=== PATIENT | female | born 1950 | race Caucasian/White ===

== ENCOUNTER 2019-03-22 14:03 | Observation (INO) ==
[2019-03-22] MEDS ORDERED: Naloxone 0.4 MG/ML INJ IVP PRN (17:36)
[2019-03-22] MEDS ORDERED: Ondansetron 4 MG/2 ML VIAL IVP PRN (17:36)
[2019-03-22] MEDS ORDERED: Gadolinium Contrast Agent (WT Based) IV PRN (17:40)
[2019-03-22] MEDS ORDERED: Ipratropium/Albuterol Neb 3 ML IH PRN (17:41)
[2019-03-22] MEDS ORDERED: D5% in Water 1,000 ML IVC PRN (17:41)
[2019-03-22] MEDS ORDERED: Dextrose Gel 15 GM/37.5 ML TUBE PO PRN ×2 (17:41)
[2019-03-22] MEDS ORDERED: *HR* Dextrose 50 % in Water (Syg) 50 ML SYRINGE IVP PRN (17:41)
[2019-03-22] MEDS ORDERED: traMADol 50 MG TABLET PO PRN (17:42)
[2019-03-22] MEDS ORDERED: *HR* HYDROcodone/Acet 5/325 mg TABLET PO PRN (17:42)
--- NOTE | 2019-03-22 17:50 | Internal Med History&Physical ---
Date of Encounter: 03/22/19 Time of Encounter: 17:15 Internal Medicine - H&P: HPI Chief complaint: abdominal pain, nausea Admitted From: Hospital to Hospital Transfer History of present illness: Ms. Hopson is a 69 year old female with history of diabetes, hyperlipidemia, COPD, HTN, who was transferred from OSH due to abdominal pain and abnormal CT abdo/pelvis. Pt states that she has had dull, epigastric pain for the last year or so. It was progressively worsening over the last 2 weeks hence she went to the OSH ED for further evaluation. Non-radiating, no aggravating/relieving factors, and not associated with any change in bowel habits or urinary symptoms including dysuria, hematuria, or urinary frequency. Denies any alcohol use. She endorses unintentional 20 pound weight loss over the last 3 months as well as loss of appetite. Denies any chest pain, shortness of breath, cough, sputum production, fever/chills, night sweats, joint pain, or rash. At the outside hospital ED, she was afebrile and hemodynamically stable. Labwork showed leukocytosis, creatinine of 1.38 (no baseline available), unremarkable LFT except for albumin of 3 and ALP of 146, and lipase of 1212. PT/INR was normal. Urinalysis was negative for leukocyte esterase or nitrite. CT Abdo pelvis showed several ill-defined areas of low attenuation in the liver as well as a small mass in the pancreatic body. No report of peripancreatic stranding or edema. She was transferred to [facility] for further management with GI consultation. Past Med Surg Social Fam HX - Past Medical History Attestation: Yes The following information was validated with the patient. Medical history: COPD, diabetes, hypertension Psychiatric history: anxiety, depression - Past Surgical History Additional surgical history: toe ampu right foot - Social History Smoking Status: Current every day smoker Packs per day: 1 Alcohol use: none Drug use: none - Family History Father Living Status: Hx Family Cardiac Disorders: Yes Sister Living Status: Still Living Hx Family Endocrine Disorder: Yes (DM) Internal Medicine - H&P: Meds Albuterol Neb [Proventil Neb] 03/22/19 [History] Insulin Degludec [Tresiba Flextouch U-100] 80 unit SQ HS 03/22/19 [History] Allergy/AdvReac Type Severity Reaction Status Date / Time clindamycin Allergy Hives Verified 03/22/19 17:38 Penicillins Allergy Hives Verified 03/22/19 17:36 promethazine [From Phenergan] Allergy Rash Verified 03/22/19 17:38 ciprofloxacin [From Cipro] AdvReac Hypertensio Verified 03/22/19 17:38 n codeine AdvReac Nausea Verified 03/22/19 17:36 doxycycline AdvReac Dizziness Verified 03/22/19 17:36 levofloxacin [From Levaquin] AdvReac Heartburn Verified 03/22/19 17:38 Metaproterenol [From Alupent] AdvReac Shakiness Verified 03/22/19 17:38 moxifloxacin [From Avelox] AdvReac Hypertensio Verified 03/22/19 17:38 n prednisone AdvReac Nausea Verified 03/22/19 17:36 Sulfa (Sulfonamide AdvReac Nausea Verified 03/22/19 17:36 Antibiotics) All Systems PM: A 10-system review of systems was performed and is negative for pertinent findings except as documented above in the HPI. - Constitutional Vitals: Temp Pulse Resp BP Pulse Ox 98.0 F 61 16 105/72 94 03/22/19 16:47 03/22/19 16:47 03/22/19 16:47 03/22/19 16:47 03/22/19 16:47 Exam: General: Alert and oriented, not in acute distress. HEENT:EOMI, pupils equal, round and reactive. Cardiovascular:Normal S1 & S2, No JVD. Pulse regular. Lungs: clear to auscultation, no wheezes/rales Abdomen:Soft, epigastric tenderness on deep palpation only. No rebound/guarding/rigidity. No obvious organomegaly palpated Extremities:No deformity or swelling Neurological:Normal cognition and motor skills. Non-focal Skin:Normal color, no rash, no lesions. Pulses:Carotid and radial pulses normal +2. Rest of the physical exam is non contributory - Assessment and Plan (1) Pancreatic mass Current Visit: Yes Status: Acute Assessment and plan: presented with acute on chronic abdominal pain and nausea. Found to have small mass in pancreatic body measuring 14mm lipase also elevated at 1212 but her abdominal pain is not characteristic of acute pancreatitis nor imaging study showed peripancreatic stranding or edema. Pt also doesn't have any risk factors for pancreatitis will repeat lipase tomorrow morning, clear liquid diet for now MRI abdomen will consult GI tomorrow morning (2) Liver mass Current Visit: Yes Status: Acute Assessment and plan: possibly represents focal fatty infiltration but will further evaluate with MRI as above GI consult tomorrow morning (3) Diabetes Current Visit: Yes Status: Chronic Assessment and plan: low dose sliding scale coverage Qualifiers: Diabetes mellitus type: type 2 Diabetes mellitus senior care insulin use: with terminal press operator use Diabetes mellitus complication status: with other specified complication Qualified Code(s): E11.69 - Type 2 diabetes mellitus with other specified complication; Z79.4 - jail (current) use of insulin (4) COPD (chronic obstructive pulmonary disease) Current Visit: Yes Status: Chronic Assessment and plan: not in exacerbation, PRN duoneb resume home inhalers once reconciled Qualifiers: COPD type: unspecified COPD Qualified Code(s): J44.9 - Chronic obstructive pulmonary disease, unspecified (5) Tobacco abuse Current Visit: Yes Status: Chronic Assessment and plan: smoking cessation advised NRT (6) Hypertension Current Visit: Yes Status: Chronic Assessment and plan: resume home meds once reconciled Qualifiers: Hypertension type: unspecified Qualified Code(s): I10 - Essential (primary) hypertension (7) DVT prophylaxis Current Visit: Yes Status: Acute Assessment and plan: SQ heparin - Time Spent With Patient Total time spent is greater than 50% in coordination of care (as documented) at patient's floor/unit and/or counseling patient: 25 - 35 minutes
[2019-03-22] MEDS: Nicotine 21 MG PATCH.TD24 TD SCH (18:43)
[2019-03-22] MEDS: Ringers Solution, Lactated 1,000 ML IVC SCH (18:43)
[2019-03-22] MEDS ORDERED: Insulin LISPRO 300 UNITS/3 ML VIAL SQ SCH (21:00)
[2019-03-22] MEDS: tiZANidine 4 MG TABLET PO SCH (22:43)
[2019-03-22] MEDS ORDERED: Acetaminophen IV 500 MG/50 ML INFUS..BTL IVPB ONE (22:58)
[2019-03-23] MEDS: Budesonide/Formoterol 160/4.5 1 PUFF INH IH SCH ×2 (00:01→07:17)
[2019-03-23] MEDS: Famotidine 20 MG TABLET PO SCH ×2 (00:36→08:51)
[2019-03-23] MEDS: Ringers Solution, Lactated 1,000 ML IVC SCH (04:47)
[2019-03-23 06:08] LABS: Basophils # 0.1 K/mcL (0.0-0.2); Basophils % 0.5 %; Eosinophils # 0.2 K/mcL (0.0-0.6); Eosinophils % 1.8 %; Hematocrit 39.4 % (35.3-44.9); Hemoglobin 13.2 g/dL (11.5-15.4); Immature Granulocytes % 0.4 % (0-4); Lymphocytes # 5.5 K/mcL (0.6-4.6); Lymphocytes % 44.3 %; Mean Corpuscular HGB Conc 33.5 g/dL (31.6-35.5); Mean Corpuscular Volume 86.6 fL (83.0-100.0); Mean Platelet Volume 9.4 fL (9.4-12.4); Monocytes # 0.9 K/mcL (0.0-1.3); Monocytes % 7.1 %; Neutrophils # 5.7 K/mcL (1.6-8.9); Platelet Count 314 K/mcL (140-400); Red Blood Count 4.55 M/mcL (3.82-4.97); Red Cell Distribution Width 13.7 % (11.5-14.5); Segmented Neutrophils % 45.9 %; White Blood Count 12.5 K/mcL (4.3-11.1)
[2019-03-23 06:26] LABS: Alanine Aminotransferase 17 Units/L (7-52); Albumin 3.3 g/dL (3.5-5.7); Albumin/Globulin Ratio 1.1 (1.1-2.2); Alkaline Phosphatase 105 Units/L (34-104); Aspartate Amino Transferase 11 Units/L (13-39); BUN/Creatinine Ratio 13 (6-26); Bilirubin,Total 0.3 mg/dL (0.3-1.0); Blood Urea Nitrogen 13 mg/dL (8-23); Calcium 9.2 mg/dL (8.6-10.3); Carbon Dioxide 28 mEq/L (23-29); Chloride 101 mEq/L (98-107); Globulin 2.9 g/dL (2.4-3.5); Glucose 95 mg/dL (70-105); Lipase 88 Units/L (11-82); Magnesium 1.6 mg/dL (1.6-2.6); Osmolality,Calculated 288 (280-300); Potassium 3.8 mEq/L (3.5-5.1); Sodium 139 mEq/L (136-145); Total Protein 6.2 g/dL (6.4-8.9); eGFR For African Americans > 60 (> 60); eGFR For Non-African Americans 57 (> 60)
[2019-03-23 06:27] LABS: Chol/HDL Ratio 4.7 (0-4.9)
[2019-03-23] MEDS: tiZANidine 4 MG TABLET PO SCH (08:51)
[2019-03-23] MEDS: Nicotine 21 MG PATCH.TD24 TD SCH (08:51)
[2019-03-23] MEDS: Insulin LISPRO 300 UNITS/3 ML VIAL SQ SCH ×2 (08:52→12:24)
[2019-03-23] MEDS ORDERED: amLODIPine 5 MG TABLET PO SCH (09:00)
[2019-03-23 11:43] VITALS: BP 128/76
--- NOTE | 2019-03-23 12:04 | Discharge Summary ---
- NOTES TO OUTPATIENT PROVIDER Notes to Outpatient Provider: Follow up with GI as outpatient for EUS Date of Encounter: 03/23/19 Time of Encounter: 09:45 - Discharge Diagnosis (1) Pancreatic mass Priority: Primary Status: Acute (2) Liver mass Priority: Secondary Status: Acute (3) Diabetes Priority: Secondary Status: Chronic Qualifiers: Diabetes mellitus type: type 2 Diabetes mellitus prison insulin use: with prison use Diabetes mellitus complication status: with other specified complication Qualified Code(s): E11.69 - Type 2 diabetes mellitus with other specified complication; Z79.4 - [facility] (current) use of insulin (4) COPD (chronic obstructive pulmonary disease) Priority: Secondary Status: Chronic Qualifiers: COPD type: unspecified COPD Qualified Code(s): J44.9 - Chronic obstructive pulmonary disease, unspecified (5) Tobacco abuse Priority: Secondary Status: Chronic (6) Hypertension Priority: Secondary Status: Chronic Qualifiers: Hypertension type: unspecified Qualified Code(s): I10 - Essential (primary) hypertension (7) DVT prophylaxis Priority: Secondary Status: Acute (8) HEMA (acute kidney injury) Priority: Secondary Status: Acute Hospital course: Ms. Hopson is a 69 year old female history of diabetes, hyperlipidemia, COPD, HTN, who was transferred from OSH due to acute on chronic abdominal pain and abnormal CT abdo/pelvis. Pt states that she has had dull, epigastric pain for the last year which was progressively worsening over the last 2 weeks prior to the presentation. CT at the outside facility showed several ill-defined areas of low attenuation in the liver as well as a small mass in the pancreatic body. No report of peripancreatic stranding or edema. She subsequently underwent MRI abdomen which demonstrated focal hepatic steatosis and pancreatic findings that could represent chronic pancreatitis, IPMN, pseudocyst, or serous cystadenoma. Discussed with GI over the phone and she will be scheduled for outpatient EUS next week. Discharge discussed with: patient, nurse, organizational consultant - Time Spent with Patient Total time spent providing and/or coordinating discharge services: 26 mins - Discharge Medications Prescriptions: Continued Insulin Degludec [Tresiba Flextouch U-100] 80 unit SQ HS Albuterol Neb [Proventil Neb] BID Tizanidine HCl [Zanaflex] 4 mg PO QID raNITIdine HCl [Ranitidine HCl] 300 mg PO DAILY Montelukast [Singulair] 10 mg PO DAILY Dicyclomine Hcl [Bentyl] 20 mg PO TID Budesonide/Formoterol 160/4.5 [Symbicort 160/4.5] 2 puff IH BIDR Atenolol 100 mg PO BID Buspirone HCl [Buspar] 10 mg PO QID amLODIPine [Norvasc] 5 mg PO DAILY Esomeprazole Magnesium [Nexium] 40 mg PO BID Amitriptyline HCl 150 mg PO HS Home Medications: Albuterol Neb [Proventil Neb] BID 03/22/19 [History] Amitriptyline HCl 150 mg PO HS 03/22/19 [History] Atenolol 100 mg PO BID 03/22/19 [History] Budesonide/Formoterol 160/4.5 [Symbicort 160/4.5] 2 puff IH BIDR 03/22/19 [History] Buspirone HCl [Buspar] 10 mg PO QID 03/22/19 [History] Dicyclomine Hcl [Bentyl] 20 mg PO TID 03/22/19 [History] Esomeprazole Magnesium [Nexium] 40 mg PO BID 03/22/19 [History] Insulin Degludec [Tresiba Flextouch U-100] 80 unit SQ HS 03/22/19 [History] Montelukast [Singulair] 10 mg PO DAILY 03/22/19 [History] Tizanidine HCl [Zanaflex] 4 mg PO QID 03/22/19 [History] amLODIPine [Norvasc] 5 mg PO DAILY 03/22/19 [History] raNITIdine HCl [Ranitidine HCl] 300 mg PO DAILY 03/22/19 [History] Allergies/Adverse Reactions: Allergy/AdvReac Type Severity Reaction Status Date / Time clindamycin Allergy Hives Verified 03/22/19 17:38 Penicillins Allergy Hives Verified 03/22/19 17:36 promethazine [From Phenergan] Allergy Rash Verified 03/22/19 17:38 ciprofloxacin [From Cipro] AdvReac Hypertensio Verified 03/22/19 17:38 n codeine AdvReac Nausea Verified 03/22/19 17:36 doxycycline AdvReac Dizziness Verified 03/22/19 17:36 levofloxacin [From Levaquin] AdvReac Heartburn Verified 03/22/19 17:38 Metaproterenol [From Alupent] AdvReac Shakiness Verified 03/22/19 17:38 moxifloxacin [From Avelox] AdvReac Hypertensio Verified 03/22/19 17:38 n prednisone AdvReac Nausea Verified 03/22/19 17:36 Sulfa (Sulfonamide AdvReac Nausea Verified 03/22/19 17:36 Antibiotics) Date of admission: 03/22/19 17:16 Primary care physician: Hermelinda Blackburn DO - Constitutional Vitals: Temp Pulse Resp BP Pulse Ox 98.8 F 57 17 128/76 96 03/23/19 11:39 03/23/19 11:39 03/23/19 11:39 03/23/19 11:39 03/23/19 11:39 Exam: General: Alert and oriented, not in acute distress. Cardiovascular:Normal S1 & S2, No JVD. Pulse regular. Lungs: clear to auscultation, no wheezes/rales Abdomen:Soft, epigastric tenderness on deep palpation only. No rebound/guarding/rigidity. No obvious organomegaly palpated Extremities:No deformity or swelling Neurological:Normal cognition and motor skills. Non-focal - Patient Status Disposition: Home, Self-Care Condition: Fair Functional capacity at discharge: independent ambulation Overall status at discharge: patient is progressing back to baseline - Discharge Instructions Instructions: Chronic Obstructive Pulmonary Disease (DC), Diabetes Mellitus Type 2 in Adults (DC), Chronic Hypertension (DC) Follow Up With: [facility] [Provider Group] (An appointment has been requested. The office will contact you at home to schedule an appointment. Thank you. ) Hermelinda Blackburn DO [Primary Care Provider] - 04/05/19 3:00 pm Maddy Perez MD [Partnered Physician] - - Diet and Activity Activity: resume usual activities as tolerated Diet: advance to your usual diet
--- NOTE | 2019-03-23 14:18 | Electrocardiograph Report ---
[place] [id number] Test Date: 2019-03-22 Pat Name: Bernie Hopson Department: 113 Room: 3B34 Gender: F [place] [employer]: : [id number] Requested By: Man Bauman Order Number: [id number] Reading MD: Zeus Zelaya Measurements Intervals [place] Rate: 65 P: 69 CO: 176 QRS: 4 QRSD: 111 T: 62 QT: 396 QTc: 407 Interpretive Statements SINUS RHYTHM MODERATE INTRAVENTRICULAR CONDUCTION DELAY [110+ ms QRS DURATION] Electronically Signed On 03-23-2019 14:16:55 EDT by Zeus Zelaya
== END 2019-03-23 13:00 | disposition home or self-care (01) ==
LOC: 3BNU → SUATTDRO 17:16
PROVIDERS: ADMIT Student in an Organized Health Care Education/Training Program; ATTEND Internal Medicine

== ENCOUNTER 2019-07-01 15:52 | Inpatient (IN) ==
[2019-07-01] MEDS: *HR* FentaNYL (PF) 100 MCG/2 ML VIAL IVP ONE ×2 (16:30→17:47)
[2019-07-01 16:38] LABS: Basophils % 0.2 %; Eosinophils # 0.1 K/mcL (0.0-0.6); Eosinophils % 0.7 %; Hematocrit 41.5 % (35.3-44.9); Hemoglobin 15.2 g/dL (11.5-15.4); Immature Granulocytes % 1.6 % (0-4); Lymphocytes # 5.1 K/mcL (0.6-4.6); Lymphocytes % 27.8 %; Mean Corpuscular HGB Conc 36.6 g/dL (31.6-35.5); Mean Corpuscular Hemoglobin 30.6 pg (28.0-33.3); Mean Corpuscular Volume 83.7 fL (83.0-100.0); Monocytes # 1.4 K/mcL (0.0-1.3); Monocytes % 7.8 %; Neutrophils # 11.4 K/mcL (1.6-8.9); Platelet Count 325 K/mcL (140-400); Red Blood Count 4.96 M/mcL (3.82-4.97); Red Cell Distribution Width 12.4 % (11.5-14.5); Segmented Neutrophils % 61.9 %; White Blood Count 18.4 K/mcL (4.3-11.1)
[2019-07-01 16:43] LABS: INR 1.1
[2019-07-01 16:58] LABS: Calcium 8.7 mg/dL (8.6-10.3); Potassium 3.9 mEq/L (3.5-5.1)
[2019-07-01] MEDS ORDERED: *HR* FentaNYL (PF) 100 MCG/2 ML VIAL IVP ONE (17:37)
[2019-07-01] MEDS ORDERED: Isovue-370 500 ML BOTTLE IVP ONE (18:43)
[2019-07-01] MEDS ORDERED: *HR* Heparin 5,000 UNIT/ML VIAL IVP PRN ×2 (18:47)
[2019-07-01] MEDS ORDERED: *HR* Heparin 5,000 UNIT/ML VIAL IVP ONE (18:47)
[2019-07-01] MEDS ORDERED: Heparin 25,000 UNIT/250 ML D5W 25,000 UNIT/250 ML IV.SOLN IVC SCH (19:00)
[2019-07-01] MEDS ORDERED: *HR* HYDROmorphone (PF) 1 MG/ML SYRINGE IVP ONE (19:06)
[2019-07-01 19:29] LABS: Prothrombin Time 11.5 Seconds (9.4-12.1)
[2019-07-01] MEDS ORDERED: Ondansetron 4 MG/2 ML VIAL IVP ONE (19:52)
[2019-07-01] MEDS ORDERED: *HR* HYDROmorphone (PF) 1 MG/ML SYRINGE IVP PRN (19:52)
[2019-07-01] MEDS ORDERED: *HR* Meperidine 25 MG/ML SYRINGE IVP PRN (19:52)
[2019-07-01] MEDS ORDERED: Lidocaine -MPF 2% 2 ML VIAL ONE (20:07)
[2019-07-01] MEDS ORDERED: Lidocaine HCL 4 ML Topical Solution (Laryng-O-Jet Kit Sterile Pak) TP ONE (20:07)
[2019-07-01] MEDS ORDERED: *HR* Rocuronium Bromide 50 MG/5 ML VIAL ONE (20:07)
[2019-07-01] MEDS ORDERED: *HR* Propofol 200 MG/20 ML VIAL IVP ONE (20:07)
[2019-07-01] MEDS ORDERED: *HR* FentaNYL (PF) 100 MCG/2 ML VIAL ONE (20:07)
[2019-07-01] MEDS ORDERED: Ondansetron 4 MG/2 ML VIAL ONE (20:08)
[2019-07-01] MEDS ORDERED: Dexamethasone 4 MG/ML VIAL ONE (20:08)
[2019-07-01] MEDS ORDERED: Acetaminophen IV 1,000 MG/100 ML INFUS..BTL ONE (20:20)
[2019-07-01] MEDS ORDERED: Heparin 1,000 UNITS/500 mL 500 ML ONE (20:26)
[2019-07-01] MEDS ORDERED: Lidocaine 1% 20 ML MDV ONE (20:27)
[2019-07-01] MEDS ORDERED: Clindamycin 900 MG/50 ML 0 MG/0 ML IV.SOLN IVPB ONE (20:29)
[2019-07-01] MEDS ORDERED: Albuterol 2.5 MG/3 ML NEBULIZER IH ONE (20:42)
[2019-07-01] MEDS ORDERED: *HR* Succinylcholine 200 MG/10 ML VIAL IVP ONE (20:46)
[2019-07-01] MEDS ORDERED: *HR* HYDROMORPHONE 2 MG/ML VIAL ONE (21:29)
[2019-07-01] MEDS ORDERED: *HR* PHENYLEPHRINE 1,000 MCG/10 ML SYRINGE IVP ONE (22:06)
[2019-07-01] MEDS ORDERED: Naloxone 0.4 MG/ML INJ IVP PRN ×2 (23:07→23:12)
[2019-07-01] MEDS ORDERED: Dextrose Gel 15 GM/37.5 ML TUBE PO PRN ×2 (23:11)
[2019-07-01] MEDS ORDERED: *HR* Dextrose 50 % in Water (Syg) 50 ML SYRINGE IVP PRN (23:11)
[2019-07-01] MEDS ORDERED: D5% in Water 1,000 ML IVC PRN (23:11)
[2019-07-01] MEDS ORDERED: Acetaminophen 325 MG TABLET PO PRN (23:12)
[2019-07-01] MEDS ORDERED: *HR* OxyCODONE Immed Rel 5 MG TABLET PO PRN (23:12)
[2019-07-01] MEDS ORDERED: Ringers Solution, Lactated 1,000 ML IVC SCH (23:15)
[2019-07-01] MEDS ORDERED: Insulin DETEMIR 100 UNIT/ML X5UNITS SQ ONE (23:48)
[2019-07-02] MEDS ORDERED: Albuterol 2.5 MG/3 ML NEBULIZER IH PRN (00:11)
[2019-07-02] MEDS: *HR* HYDROcodone/Acet 5/325 mg TABLET PO PRN ×2 (00:20→07:48)
[2019-07-02 05:04] LABS: Basophils # 0.1 K/mcL (0.0-0.2); Basophils % 0.3 %; Hematocrit 40.6 % (35.3-44.9); Hemoglobin 14.4 g/dL (11.5-15.4); Immature Granulocytes % 1.1 % (0-4); Lymphocytes # 1.6 K/mcL (0.6-4.6); Lymphocytes % 8.4 %; Mean Corpuscular HGB Conc 35.5 g/dL (31.6-35.5); Mean Corpuscular Hemoglobin 30.3 pg (28.0-33.3); Mean Corpuscular Volume 85.5 fL (83.0-100.0); Mean Platelet Volume 9.7 fL (9.4-12.4); Monocytes # 0.3 K/mcL (0.0-1.3); Monocytes % 1.7 %; Neutrophils # 16.5 K/mcL (1.6-8.9); Platelet Count 273 K/mcL (140-400); Red Blood Count 4.75 M/mcL (3.82-4.97); Red Cell Distribution Width 12.4 % (11.5-14.5); Segmented Neutrophils % 88.5 %; White Blood Count 18.6 K/mcL (4.3-11.1)
[2019-07-02 05:06] LABS: Prothrombin Time 11.4 Seconds (9.4-12.1)
[2019-07-02 05:09] LABS: Heparin anti-factor XA UFH 1.1 IU/mL (0.30-0.70)
[2019-07-02 05:28] LABS: BUN/Creatinine Ratio 21 (6-26); Blood Urea Nitrogen 20 mg/dL (8-23); Calcium 8.4 mg/dL (8.6-10.3); Carbon Dioxide 23 mEq/L (23-29); Chloride 101 mEq/L (98-107); Glucose 276 mg/dL (70-105); Osmolality,Calculated 286 (280-300); Potassium 4.9 mEq/L (3.5-5.1); Sodium 132 mEq/L (136-145); eGFR For African Americans > 60 (> 60); eGFR For Non-African Americans 58 (> 60)
[2019-07-02 06:50] LABS: Estimated Average Glucose 306 mg/dl
[2019-07-02] MEDS ORDERED: Insulin LISPRO 300 UNITS/3 ML VIAL SQ SCH ×3 (07:30→21:00)
[2019-07-02] MEDS ORDERED: *HR* Dextrose 50 % in Water (Syg) 50 ML SYRINGE IVP PRN (08:11)
[2019-07-02] MEDS ORDERED: Naloxone 0.4 MG/ML INJ IVP PRN (08:11)
[2019-07-02] MEDS ORDERED: *HR* Heparin 5,000 UNIT/ML VIAL IVP PRN ×2 (08:11)
[2019-07-02] MEDS ORDERED: Dextrose Gel 15 GM/37.5 ML TUBE PO PRN ×2 (08:11)
[2019-07-02] MEDS ORDERED: D5% in Water 1,000 ML IVC PRN (08:11)
[2019-07-02] MEDS ORDERED: Ipratropium/Albuterol Neb 3 ML IH PRN (08:37)
[2019-07-02] MEDS ORDERED: amLODIPine 5 MG TABLET PO SCH ×2 (09:00)
[2019-07-02] MEDS: amLODIPine 5 MG TABLET PO SCH (09:36)
[2019-07-02 09:44] LABS: Thyroid Stimulating Hormone 0.757 mcIU/mL (0.340-5.600)
[2019-07-02] MEDS: tiZANidine 4 MG TABLET PO SCH ×4 (09:53→20:16)
[2019-07-02] MEDS: Famotidine 20 MG TABLET PO SCH (09:53)
[2019-07-02] MEDS ORDERED: Budesonide/Formoterol 160/4.5 1 PUFF INH IH SCH ×2 (10:00)
[2019-07-02] MEDS: Budesonide/Formoterol 160/4.5 1 PUFF INH IH SCH ×2 (10:25→21:26)
[2019-07-02] MEDS: Albuterol 2.5 MG/3 ML NEBULIZER IH PRN ×2 (10:38→21:26)
[2019-07-02] MEDS ORDERED: Perflutren Lipid Microsphere 1.3 ML in 0.9 % Sodium Chloride 8.7 ML IVP ONE (12:09)
[2019-07-02] MEDS: Acetaminophen 325 MG TABLET PO PRN ×2 (12:14→22:23)
[2019-07-02] MEDS: Insulin LISPRO 300 UNITS/3 ML VIAL SQ SCH ×3 (12:14→20:17)
[2019-07-02] MEDS: Heparin 25,000 UNIT/250 ML D5W 25,000 UNIT/250 ML IV.SOLN IVC SCH (12:42)
[2019-07-02] MEDS ORDERED: Insulin DETEMIR 100 UNIT/ML X5UNITS SQ SCH ×3 (21:00)
[2019-07-03] MEDS ORDERED: Melatonin 3 MG TABLET PO PRN (01:20)
[2019-07-03 01:39] LABS: Chol/HDL Ratio 3.4 (0-4.9)
[2019-07-03] MEDS: Budesonide/Formoterol 160/4.5 1 PUFF INH IH SCH ×2 (07:17→20:32)
[2019-07-03] MEDS: Albuterol 2.5 MG/3 ML NEBULIZER IH PRN (07:17)
[2019-07-03] MEDS: Heparin 25,000 UNIT/250 ML D5W 25,000 UNIT/250 ML IV.SOLN IVC SCH (08:10)
[2019-07-03 09:38] LABS: Basophils % 0.2 %; Eosinophils % 0.3 %; Hematocrit 41.8 % (35.3-44.9); Hemoglobin 14.9 g/dL (11.5-15.4); Immature Granulocytes % 0.4 % (0-4); Lymphocytes # 3.8 K/mcL (0.6-4.6); Lymphocytes % 25.3 %; Mean Corpuscular HGB Conc 35.6 g/dL (31.6-35.5); Mean Corpuscular Hemoglobin 30.7 pg (28.0-33.3); Mean Corpuscular Volume 86.2 fL (83.0-100.0); Mean Platelet Volume 9.6 fL (9.4-12.4); Monocytes # 1.1 K/mcL (0.0-1.3); Monocytes % 7.5 %; Platelet Count 264 K/mcL (140-400); Red Blood Count 4.85 M/mcL (3.82-4.97); Red Cell Distribution Width 12.3 % (11.5-14.5); Segmented Neutrophils % 66.3 %
[2019-07-03] MEDS: tiZANidine 4 MG TABLET PO SCH ×4 (09:46→21:42)
[2019-07-03] MEDS: amLODIPine 5 MG TABLET PO SCH (09:47)
[2019-07-03] MEDS: Famotidine 20 MG TABLET PO SCH (09:47)
[2019-07-03 09:59] LABS: Alanine Aminotransferase 17 Units/L (7-52); Albumin 3.2 g/dL (3.5-5.7); Alkaline Phosphatase 81 Units/L (34-104); Aspartate Amino Transferase 9 Units/L (13-39); BUN/Creatinine Ratio 19 (6-26); Bilirubin,Total 0.3 mg/dL (0.3-1.0); Blood Urea Nitrogen 20 mg/dL (8-23); Calcium 8.7 mg/dL (8.6-10.3); Carbon Dioxide 25 mEq/L (23-29); Chloride 100 mEq/L (98-107); Globulin 3.3 g/dL (2.4-3.5); Glucose 292 mg/dL (70-105); Magnesium 1.6 mg/dL (1.6-2.6); Osmolality,Calculated 289 (280-300); Potassium 3.9 mEq/L (3.5-5.1); Sodium 133 mEq/L (136-145); Total Protein 6.5 g/dL (6.4-8.9); eGFR For African Americans > 60 (> 60); eGFR For Non-African Americans 53 (> 60)
[2019-07-03] MEDS: Insulin LISPRO 300 UNITS/3 ML VIAL SQ SCH ×2 (11:53→18:07)
[2019-07-03] MEDS ORDERED: Dextrose Gel 15 GM/37.5 ML TUBE PO PRN ×2 (11:58)
[2019-07-03] MEDS ORDERED: Acetaminophen 325 MG TABLET PO PRN (11:58)
[2019-07-03] MEDS ORDERED: Ipratropium/Albuterol Neb 3 ML IH PRN (11:58)
[2019-07-03] MEDS ORDERED: Heparin 25,000 UNIT/250 ML D5W 25,000 UNIT/250 ML IV.SOLN IVC SCH (11:58)
[2019-07-03] MEDS ORDERED: *HR* Heparin 5,000 UNIT/ML VIAL IVP PRN ×2 (11:58)
[2019-07-03] MEDS ORDERED: *HR* Dextrose 50 % in Water (Syg) 50 ML SYRINGE IVP PRN (11:58)
[2019-07-03] MEDS ORDERED: Naloxone 0.4 MG/ML INJ IVP PRN (11:58)
[2019-07-03] MEDS ORDERED: D5% in Water 1,000 ML IVC PRN (11:58)
[2019-07-03] MEDS ORDERED: Albuterol 2.5 MG/3 ML NEBULIZER IH PRN (11:58)
[2019-07-03 16:46] LABS: Alanine Aminotransferase 16 Units/L (7-52); Albumin 3.1 g/dL (3.5-5.7); Alkaline Phosphatase 79 Units/L (34-104); Aspartate Amino Transferase 9 Units/L (13-39); BUN/Creatinine Ratio 19 (6-26); Bilirubin,Total 0.3 mg/dL (0.3-1.0); Blood Urea Nitrogen 18 mg/dL (8-23); Calcium 8.7 mg/dL (8.6-10.3); Carbon Dioxide 24 mEq/L (23-29); Chloride 98 mEq/L (98-107); Globulin 3.2 g/dL (2.4-3.5); Glucose 225 mg/dL (70-105); Osmolality,Calculated 279 (280-300); Potassium 3.8 mEq/L (3.5-5.1); Sodium 130 mEq/L (136-145); Total Protein 6.3 g/dL (6.4-8.9); eGFR For African Americans > 60 (> 60); eGFR For Non-African Americans 58 (> 60)
[2019-07-03] MEDS ORDERED: Cyanocobalamin (B-12) 1,000 MCG/ML VIAL IM ONE (16:59)
[2019-07-03] MEDS ORDERED: *HR* Rivaroxaban 15 MG TABLET PO SCH ×2 (17:00)
[2019-07-03] MEDS ORDERED: Aspirin 81 MG TAB.CHEW PO SCH (17:00)
[2019-07-03 17:03] LABS: Ferritin 108 ng/mL (10-120)
[2019-07-03] MEDS: *HR* Rivaroxaban 15 MG TABLET PO SCH ×2 (18:10→22:03)
[2019-07-03] MEDS ORDERED: Insulin DETEMIR 100 UNIT/ML X5UNITS SQ SCH (21:00)
[2019-07-03] MEDS ORDERED: Insulin LISPRO 300 UNITS/3 ML VIAL SQ SCH (21:00)
[2019-07-04] MEDS ORDERED: Famotidine 20 MG TABLET PO SCH (07:30)
[2019-07-04 07:53] VITALS: BP 144/81
[2019-07-04] MEDS: Budesonide/Formoterol 160/4.5 1 PUFF INH IH SCH (08:00)
[2019-07-04] MEDS ORDERED: amLODIPine 5 MG TABLET PO SCH (09:00)
[2019-07-04] MEDS: *HR* Rivaroxaban 15 MG TABLET PO SCH (09:01)
[2019-07-04] MEDS: tiZANidine 4 MG TABLET PO SCH (09:01)
[2019-07-04] MEDS: Insulin LISPRO 300 UNITS/3 ML VIAL SQ SCH (09:02)
[2019-07-06 17:18] LABS: Prothrombin G20210A Specimen WHOLE BLOOD
[2019-07-06 18:49] LABS: APTT (LE Anticoag) 41 sec (32-48); Diluted Russell Viper Venom 27 sec (33-44); PT (LE-Anticoag) 12.8 sec (12.0-15.5)
[2019-07-07 09:00] LABS: Prothrombin G20210A Mut Result NEGATIVE
[2019-07-08 00:33] LABS: FACV Specimen WHOLE BLOOD
[2019-07-08 08:08] LABS: Fac V Leiden R506Q Mut Result NEGATIVE
[2019-07-13 08:48] LABS: Antiphospholipid IgG High Spec 5 GPL (0-14); Antiphospholipid IgM High Spec 1 MPL (0-14)
== END 2019-07-04 14:38 | disposition home or self-care (01) | DRG 253 ==
LOC: EMEROOARM 15:52 → ICNU 20:40 → SUATTDRO 20:44 → ICNU 20:44 → 3ANU 07-03 15:41
PROVIDERS: ADMIT Surgery Vascular Surgery; ATTEND Surgery Vascular Surgery
PROC: VASEMBO (2019-07-01 08:45)

== ENCOUNTER 2019-07-08 22:16 | Inpatient (IN) ==
[2019-07-08] MEDS ORDERED: Isovue-370 500 ML BOTTLE IVP ONE (23:50)
[2019-07-08] MEDS ORDERED: 0.9 % Sodium Chloride 1,000 ML IVC ONE (23:51)
[2019-07-08] MEDS ORDERED: Ipratropium/Albuterol Neb 3 ML IH ONE (23:54)
[2019-07-09 00:32] LABS: Basophils % 0.2 %; Eosinophils # 0.1 K/mcL (0.0-0.6); Eosinophils % 0.6 %; Hematocrit 35.8 % (35.3-44.9); Hemoglobin 12.8 g/dL (11.5-15.4); Immature Granulocytes % 0.5 % (0-4); Lymphocytes # 3.8 K/mcL (0.6-4.6); Lymphocytes % 19.4 %; Mean Corpuscular HGB Conc 35.8 g/dL (31.6-35.5); Mean Corpuscular Hemoglobin 30.8 pg (28.0-33.3); Mean Corpuscular Volume 86.1 fL (83.0-100.0); Mean Platelet Volume 9.4 fL (9.4-12.4); Monocytes # 1.8 K/mcL (0.0-1.3); Monocytes % 9.3 %; Neutrophils # 13.6 K/mcL (1.6-8.9); Platelet Count 444 K/mcL (140-400); Red Blood Count 4.16 M/mcL (3.82-4.97); Red Cell Distribution Width 12.3 % (11.5-14.5); White Blood Count 19.5 K/mcL (4.3-11.1)
[2019-07-09 00:50] LABS: BUN/Creatinine Ratio 13 (6-26); Blood Urea Nitrogen 14 mg/dL (8-23); Calcium 8.9 mg/dL (8.6-10.3); Carbon Dioxide 22 mEq/L (23-29); Chloride 97 mEq/L (98-107); Glucose 207 mg/dL (70-105); Osmolality,Calculated 275 (280-300); Potassium 3.9 mEq/L (3.5-5.1); Sodium 129 mEq/L (136-145); eGFR For African Americans > 60 (> 60); eGFR For Non-African Americans 50 (> 60)
[2019-07-09 00:51] LABS: Albumin 3.2 g/dL (3.5-5.7); Albumin/Globulin Ratio 0.8 (1.1-2.2); Bilirubin,Direct 0.2 mg/dL (0.0-0.2); Bilirubin,Indirect 0.3 mg/dL (0.0-1.0); Bilirubin,Total 0.5 mg/dL (0.3-1.0); Globulin 3.8 g/dL (2.4-3.5)
[2019-07-09] MEDS ORDERED: Piperacillin/Tazobactam 3.375 GM in Water for inj. (sterile) 20 ML IVP ONE (00:52)
[2019-07-09] MEDS ORDERED: Ondansetron 4 MG/2 ML VIAL IVP STA (00:52)
[2019-07-09] MEDS ORDERED: 0.9 % Sodium Chloride 1,000 ML IVC ONE (01:07)
[2019-07-09] MEDS ORDERED: 0.9 % Sodium Chloride 500 ML IVC ONE (01:07)
[2019-07-09 01:13] LABS: Bilirubin,Urine Negative (Negative); Blood,Urine Moderate (Negative); Clarity,Urine Clear (Clear); Color,Urine Yellow (Yellow); Glucose,Urine (UA) Normal (Normal); Ketones,Urine Negative (Negative); Leukocyte Esterase,Urine Negative (Negative); Nitrite,Urine Negative (Negative); Protein,Urine >=300 mg/dL (Neg-Trace); Specific Gravity,Urine 1.019 (1.010-1.025); Urobilinogen,Urine Normal (Normal)
[2019-07-09 01:14] LABS: Bacteria,Urine None Seen per hpf (None-Few); Hyaline Casts,Urine None Seen per lpf (None-Few); RBC,Urine 30-50 per hpf (0-3); Squamous Epithelial Cell,Urine Many per lpf (None-Few)
[2019-07-09] MEDS ORDERED: Ondansetron 4 MG/2 ML VIAL IVP PRN (08:22)
[2019-07-09] MEDS ORDERED: *HR* Dextrose 50 % in Water (Syg) 50 ML SYRINGE IVP PRN (08:24)
[2019-07-09] MEDS ORDERED: D5% in Water 1,000 ML IVC PRN (08:24)
[2019-07-09] MEDS ORDERED: Dextrose Gel 15 GM/37.5 ML TUBE PO PRN ×2 (08:24)
[2019-07-09] MEDS ORDERED: Heparin 25,000 UNIT/250 ML D5W 25,000 UNIT/250 ML IV.SOLN IVC SCH ×2 (08:45→09:00)
[2019-07-09] MEDS: Budesonide/Formoterol 160/4.5 1 PUFF INH IH SCH ×2 (10:28→19:58)
[2019-07-09] MEDS: Ipratropium/Albuterol Neb 3 ML IH SCH ×3 (10:29→19:58)
[2019-07-09] MEDS: Fluticasone Propionate Nasal 50 MCG/SPRAY BOTTLE NS SCH (11:20)
[2019-07-09] MEDS: Loratadine 10 MG TABLET PO SCH (11:20)
[2019-07-09] MEDS: Famotidine 20 MG TABLET PO SCH (11:20)
[2019-07-09] MEDS: 0.9 % Sodium Chloride 1,000 ML IVC SCH ×2 (11:21→20:46)
[2019-07-09] MEDS: Piperacillin/Tazobactam 3.375 GM in 0.9 % Sodium Chloride Mini Bag 100 ML IVPB SCH ×2 (13:36→15:32)
[2019-07-09] MEDS: Insulin LISPRO 300 UNITS/3 ML VIAL SQ SCH ×4 (15:31→21:16)
[2019-07-09] MEDS ORDERED: *HR* Rivaroxaban 15 MG TABLET PO SCH (17:00)
[2019-07-09 19:29] LABS: Adenovirus Not Detected (Not Detect); Bordetella Pertussis Not Detected (Not Detect); Chlamydophila pneumoniae Not Detected (Not Detect); Coronavirus 229E Not Detected (Not Detect); Coronavirus HKU1 Not Detected (Not Detect); Coronavirus NL63 Not Detected (Not Detect); Coronavirus OC43 Not Detected (Not Detect); Human Metapneumovirus Not Detected (Not Detect); Human Rhinovirus/Enterovirus Not Detected (Not Detect); Influenza A Subtype 2009 H1 Not Detected (Not Detect); Influenza A Untypeable Not Detected (Not Detect); Influenza B Not Detected (Not Detect); Mycoplasma pneumoniae Not Detected (Not Detect); Parainfluenza Virus 1 Not Detected (Not Detect); Parainfluenza Virus 2 Not Detected (Not Detect); Parainfluenza Virus 3 Not Detected (Not Detect); Parainfluenza Virus 4 Not Detected (Not Detect); Respiratory Syncytial Virus Not Detected (Not Detect)
[2019-07-09 23:44] LABS: Enterococcus by PCR Not Detected (Not Detect); Staphylococcus aureus by PCR DETECTED (Not Detect); blaKPC Carbapenem-Resist Gene Not Detected (Not Detect); mecA Methicillin-Resist Gene DETECTED (Not Detect); vanA/B Vancomycin-Resist Genes Not Detected (Not Detect)
[2019-07-09 23:45] LABS: Acinetobacter baumannii by PCR Not Detected (Not Detect); Candida albicans by PCR Not Detected (Not Detect); Candida glabrata by PCR Not Detected (Not Detect); Candida krusei by PCR Not Detected (Not Detect); Candida parapsilosis by PCR Not Detected (Not Detect); Candida tropicalis by PCR Not Detected (Not Detect); Enterobacter cloacae Cmplx PCR Not Detected (Not Detect); Enterobacteriaceae by PCR Not Detected (Not Detect); Escherichia coli by PCR Not Detected (Not Detect); Klebsiella oxytoca by PCR Not Detected (Not Detect); Klebsiella pneumoniae by PCR Not Detected (Not Detect); Proteus by PCR Not Detected (Not Detect); Pseudomonas aeruginosa by PCR Not Detected (Not Detect); Serratia marcescens by PCR Not Detected (Not Detect); Streptococcus agalactiae(B)PCR Not Detected (Not Detect); Streptococcus by PCR Not Detected (Not Detect); Streptococcus pneumoniae PCR Not Detected (Not Detect); Streptococcus pyogenes (A) PCR Not Detected (Not Detect)
[2019-07-10] MEDS: Ipratropium/Albuterol Neb 3 ML IH SCH ×6 (00:11→20:18)
[2019-07-10] MEDS: Insulin DETEMIR 100 UNIT/ML X5UNITS SQ SCH ×2 (00:27→21:40)
[2019-07-10] MEDS: Piperacillin/Tazobactam 3.375 GM in 0.9 % Sodium Chloride Mini Bag 100 ML IVPB SCH ×3 (00:54→17:00)
[2019-07-10] MEDS ORDERED: Acetaminophen 325 MG TABLET PO ONE (03:48)
[2019-07-10 06:04] LABS: Basophils % 0.2 %; Eosinophils # 0.1 K/mcL (0.0-0.6); Hematocrit 31.7 % (35.3-44.9); Immature Granulocytes % 0.4 % (0-4); Lymphocytes # 3.1 K/mcL (0.6-4.6); Lymphocytes % 22.2 %; Mean Corpuscular HGB Conc 35.3 g/dL (31.6-35.5); Mean Corpuscular Hemoglobin 30.7 pg (28.0-33.3); Mean Corpuscular Volume 86.8 fL (83.0-100.0); Mean Platelet Volume 9.2 fL (9.4-12.4); Monocytes # 1.4 K/mcL (0.0-1.3); Monocytes % 9.9 %; Neutrophils # 9.2 K/mcL (1.6-8.9); Platelet Count 374 K/mcL (140-400); Red Blood Count 3.65 M/mcL (3.82-4.97); Red Cell Distribution Width 12.3 % (11.5-14.5); Segmented Neutrophils % 66.3 %; White Blood Count 13.9 K/mcL (4.3-11.1)
[2019-07-10 06:07] LABS: Hemoglobin 11.2 g/dL (11.5-15.4)
[2019-07-10 06:25] LABS: Calcium 8.5 mg/dL (8.6-10.3)
[2019-07-10] MEDS: Budesonide/Formoterol 160/4.5 1 PUFF INH IH SCH ×2 (07:18→20:17)
[2019-07-10] MEDS: Insulin LISPRO 300 UNITS/3 ML VIAL SQ SCH ×4 (08:27→21:39)
[2019-07-10] MEDS: Loratadine 10 MG TABLET PO SCH (08:28)
[2019-07-10] MEDS: Fluticasone Propionate Nasal 50 MCG/SPRAY BOTTLE NS SCH (08:28)
[2019-07-10] MEDS: Famotidine 20 MG TABLET PO SCH (08:28)
[2019-07-10] MEDS: Nicotine 14 MG PATCH.TD24 TD SCH (12:37)
[2019-07-10 13:21] LABS: Estimated Average Glucose 303 mg/dl
[2019-07-10 15:26] LABS: INR 1.6; Prothrombin Time 18.7 Seconds (9.4-12.1)
[2019-07-10 15:28] LABS: Hematocrit 32.2 % (35.3-44.9); Hemoglobin 11.1 g/dL (11.5-15.4); Mean Corpuscular HGB Conc 34.5 g/dL (31.6-35.5); Mean Corpuscular Hemoglobin 30.2 pg (28.0-33.3); Mean Corpuscular Volume 87.5 fL (83.0-100.0); Mean Platelet Volume 9.4 fL (9.4-12.4); Platelet Count 401 K/mcL (140-400); Red Blood Count 3.68 M/mcL (3.82-4.97); Red Cell Distribution Width 12.4 % (11.5-14.5); White Blood Count 12.7 K/mcL (4.3-11.1)
[2019-07-10 16:25] LABS: Activated Partial Thrombo Time 37.6 Seconds (26.0-36.0)
[2019-07-10] MEDS: Heparin 25,000 UNIT/250 ML D5W 25,000 UNIT/250 ML IV.SOLN IVC SCH (16:44)
[2019-07-10] MEDS ORDERED: *HR* Heparin 5,000 UNIT/ML VIAL IVP PRN ×2 (17:00)
[2019-07-10] MEDS ORDERED: *HR* Heparin 5,000 UNIT/ML VIAL IVP ONE (17:00)
[2019-07-10] MEDS ORDERED: *HR* LORazepam 0.5 MG TABLET PO PRN (18:12)
[2019-07-11] MEDS: Ipratropium/Albuterol Neb 3 ML IH SCH ×7 (00:10→23:49)
[2019-07-11] MEDS: Piperacillin/Tazobactam 3.375 GM in 0.9 % Sodium Chloride Mini Bag 100 ML IVPB SCH ×3 (00:45→16:04)
[2019-07-11 01:14] LABS: Hematocrit 29.5 % (35.3-44.9); Hemoglobin 10.2 g/dL (11.5-15.4); Mean Corpuscular HGB Conc 34.6 g/dL (31.6-35.5); Mean Corpuscular Hemoglobin 30.6 pg (28.0-33.3); Mean Corpuscular Volume 88.6 fL (83.0-100.0); Mean Platelet Volume 9.4 fL (9.4-12.4); Platelet Count 340 K/mcL (140-400); Red Blood Count 3.33 M/mcL (3.82-4.97); Red Cell Distribution Width 12.2 % (11.5-14.5); White Blood Count 10.8 K/mcL (4.3-11.1)
[2019-07-11 01:32] LABS: Calcium 8.2 mg/dL (8.6-10.3); Potassium 3.9 mEq/L (3.5-5.1)
[2019-07-11] MEDS: Budesonide/Formoterol 160/4.5 1 PUFF INH IH SCH ×2 (07:32→20:16)
[2019-07-11] MEDS: Loratadine 10 MG TABLET PO SCH (09:14)
[2019-07-11] MEDS: Nicotine 14 MG PATCH.TD24 TD SCH (09:15)
[2019-07-11] MEDS: Famotidine 20 MG TABLET PO SCH (09:15)
[2019-07-11] MEDS: Insulin LISPRO 300 UNITS/3 ML VIAL SQ SCH ×3 (09:52→20:45)
[2019-07-11] MEDS: Fluticasone Propionate Nasal 50 MCG/SPRAY BOTTLE NS SCH (14:36)
[2019-07-11] MEDS: Heparin 25,000 UNIT/250 ML D5W 25,000 UNIT/250 ML IV.SOLN IVC SCH (16:05)
[2019-07-11] MEDS: Insulin DETEMIR 100 UNIT/ML X5UNITS SQ SCH (20:46)
[2019-07-12] MEDS: Piperacillin/Tazobactam 3.375 GM in 0.9 % Sodium Chloride Mini Bag 100 ML IVPB SCH ×2 (00:53→08:16)
[2019-07-12] MEDS: Ipratropium/Albuterol Neb 3 ML IH SCH ×6 (04:05→23:44)
[2019-07-12 04:37] LABS: Hematocrit 29.8 % (35.3-44.9); Hemoglobin 10.6 g/dL (11.5-15.4); Mean Corpuscular HGB Conc 35.6 g/dL (31.6-35.5); Mean Corpuscular Hemoglobin 30.7 pg (28.0-33.3); Mean Corpuscular Volume 86.4 fL (83.0-100.0); Mean Platelet Volume 9.2 fL (9.4-12.4); Platelet Count 420 K/mcL (140-400); Red Blood Count 3.45 M/mcL (3.82-4.97); Red Cell Distribution Width 12.3 % (11.5-14.5); White Blood Count 7.9 K/mcL (4.3-11.1)
[2019-07-12 04:59] LABS: Calcium 8.5 mg/dL (8.6-10.3); Potassium 3.8 mEq/L (3.5-5.1)
[2019-07-12] MEDS: Budesonide/Formoterol 160/4.5 1 PUFF INH IH SCH ×2 (07:39→19:40)
[2019-07-12] MEDS: Insulin LISPRO 300 UNITS/3 ML VIAL SQ SCH ×4 (08:01→21:55)
[2019-07-12] MEDS: Famotidine 20 MG TABLET PO SCH (08:16)
[2019-07-12] MEDS: Loratadine 10 MG TABLET PO SCH (08:16)
[2019-07-12] MEDS: Nicotine 14 MG PATCH.TD24 TD SCH (08:17)
[2019-07-12] MEDS: Fluticasone Propionate Nasal 50 MCG/SPRAY BOTTLE NS SCH (10:00)
[2019-07-12] MEDS ORDERED: *HR* FentaNYL (PF) 100 MCG/2 ML VIAL ONE (13:39)
[2019-07-12] MEDS ORDERED: *HR* Propofol 200 MG/20 ML VIAL IVP ONE (13:39)
[2019-07-12] MEDS ORDERED: Lidocaine -MPF 2% 2 ML VIAL ONE (13:50)
[2019-07-12] MEDS ORDERED: Ondansetron 4 MG/2 ML VIAL ONE (13:50)
[2019-07-12] MEDS ORDERED: Lidocaine 1% 20 ML MDV ONE (14:26)
[2019-07-12] MEDS ORDERED: Bupivacaine/EPI 1:200k 0.25%PF 10 ML VIAL INFILT ONE (14:26)
[2019-07-12] MEDS ORDERED: *HR* Midazolam HCl 2 MG/2 ML VIAL ONE (14:42)
[2019-07-12] MEDS ORDERED: Acetaminophen IV 1,000 MG/100 ML INFUS..BTL ONE (14:44)
[2019-07-12] MEDS ORDERED: Propofol 500 MG/50 ML INFUS..BTL ONE (14:55)
[2019-07-12] MEDS ORDERED: D5% in Water 1,000 ML IVC PRN (16:26)
[2019-07-12] MEDS ORDERED: Ondansetron 4 MG/2 ML VIAL IVP PRN (16:26)
[2019-07-12] MEDS ORDERED: *HR* Heparin 5,000 UNIT/ML VIAL IVP PRN ×2 (16:26)
[2019-07-12] MEDS ORDERED: Dextrose Gel 15 GM/37.5 ML TUBE PO PRN ×2 (16:26)
[2019-07-12] MEDS ORDERED: *HR* LORazepam 0.5 MG TABLET PO PRN (16:26)
[2019-07-12] MEDS ORDERED: *HR* Dextrose 50 % in Water (Syg) 50 ML SYRINGE IVP PRN (16:26)
[2019-07-12] MEDS: Heparin 25,000 UNIT/250 ML D5W 25,000 UNIT/250 ML IV.SOLN IVC SCH ×2 (18:12→23:52)
[2019-07-12] MEDS ORDERED: Insulin DETEMIR 100 UNIT/ML X5UNITS SQ SCH (21:00)
[2019-07-13] MEDS: Ipratropium/Albuterol Neb 3 ML IH SCH ×3 (03:36→11:06)
[2019-07-13] MEDS: Budesonide/Formoterol 160/4.5 1 PUFF INH IH SCH ×2 (07:19→20:39)
[2019-07-13] MEDS: Insulin LISPRO 300 UNITS/3 ML VIAL SQ SCH ×4 (08:55→23:09)
[2019-07-13] MEDS: Nicotine 14 MG PATCH.TD24 TD SCH (08:55)
[2019-07-13] MEDS: Famotidine 20 MG TABLET PO SCH (08:56)
[2019-07-13] MEDS: Loratadine 10 MG TABLET PO SCH (08:57)
[2019-07-13] MEDS: Fluticasone Propionate Nasal 50 MCG/SPRAY BOTTLE NS SCH (08:57)
[2019-07-13] MEDS ORDERED: Lidocaine -MPF 1% 5 ML AMPUL INFILT ONE (15:08)
[2019-07-13] MEDS ORDERED: Ipratropium/Albuterol Neb 3 ML IH PRN (15:31)
[2019-07-13] MEDS ORDERED: *HR* Rivaroxaban 15 MG TABLET PO SCH (17:00)
[2019-07-13] MEDS ORDERED: Perflutren Lipid Microsphere 1.3 ML in 0.9 % Sodium Chloride 8.7 ML IVP ONE (19:41)
[2019-07-13] MEDS ORDERED: Insulin DETEMIR 100 UNIT/ML X5UNITS SQ SCH (21:00)
[2019-07-14 06:03] LABS: Calcium 8.9 mg/dL (8.6-10.3)
[2019-07-14 07:33] VITALS: BP 142/74
[2019-07-14] MEDS: Budesonide/Formoterol 160/4.5 1 PUFF INH IH SCH (07:50)
[2019-07-14] MEDS: Insulin LISPRO 300 UNITS/3 ML VIAL SQ SCH ×2 (08:10→11:41)
[2019-07-14] MEDS: Loratadine 10 MG TABLET PO SCH (08:11)
[2019-07-14] MEDS: Fluticasone Propionate Nasal 50 MCG/SPRAY BOTTLE NS SCH (08:12)
[2019-07-14] MEDS: Nicotine 14 MG PATCH.TD24 TD SCH (08:12)
[2019-07-14] MEDS: Famotidine 20 MG TABLET PO SCH (08:12)
[2019-07-14] MEDS ORDERED: Aminoglycoside Consult 1 EACH MC ONE (12:19)
== END 2019-07-14 12:20 | disposition home health service (06) | DRG 854 ==
LOC: 3ANU 22:16 → EMEROOARM 22:16 → SUATTDRO 07-09 03:08 → 3ANU 07-09 03:57
PROVIDERS: ADMIT Family Medicine; ATTEND Family Medicine